=== PATIENT | female | born 1960 | race Caucasian/White ===

== ENCOUNTER 2017-03-24 16:21 | Emergency (ER) | payer BC, OTHER ==
[~2017-03-24] VITALS: Ht 167.6 cm; Wt 71.1 kg
[~2017-03-24 16:21] MED LIST: ALPR0.254; NITR-58 PO
[2017-03-24 16:23] VITALS: Ht 167.6 cm; Wt 71.1 kg
[2017-03-24] MEDS ORDERED: SOD CHLORIDE 0.9% 1,000 ML IV STA (16:43)
[2017-03-24] MEDS: KETOROLAC 30 MG INJ IV STA ×2 (17:03→17:04)
[2017-03-24 17:08] LABS: ADD UMIC YES; UR ASCORBIC ACID NEGATIVE (NEGATIVE); UR BILIRUBIN (Dip) NEGATIVE (NEGATIVE); UR BLOOD (Dip) 2+ mg/dL (NEGATIVE); UR CLARITY CLEAR (CLEAR); UR COLOR YELLOW (YELLOW); UR GLUCOSE (Dip) NEGATIVE (NEGATIVE); UR KETONES (Dip) NEGATIVE (NEGATIVE); UR LEUKOCYTE ESTERASE (Dip) TRACE Leu/ul (NEGATIVE); UR MUCUS FEW /HPF (NONE SEEN); UR NITRITE (Dip) NEGATIVE (NEGATIVE); UR RBC 2 /HPF (0-5); UR SQUAMOUS EPITHELIAL CELL FEW /HPF (FEW); UR TOTAL PROTEIN (Dip) NEGATIVE (NEGATIVE); UR UROBILINOGEN (Dip) NEGATIVE (NEGATIVE)
[2017-03-24 17:26] LABS: BASOPHIL # 0.1 10^3/ul (0.0-0.1); BASOPHILS % 0.7 % (0.0-2.0); EOSINOPHILS # 0.2 10^3/ul (0.0-0.5); EOSINOPHILS % 1.6 % (0.0-7.0); HEMATOCRIT 41.4 % (37.0-47.0); HEMOGLOBIN 13.7 g/dl (12.0-16.0); LYMPHOCYTES # 2.5 10^3/ul (0.8-2.9); LYMPHOCYTES % 25.8 % (15.0-51.0); MEAN CORPUSCULAR HEMOGLOBIN 30.9 pg (29.0-33.0); MEAN CORPUSCULAR HGB CONC 33.1 g/dl (32.0-37.0); MEAN CORPUSCULAR VOLUME 93.2 fl (82.0-101.0); MEAN PLATELET VOLUME 10.4 fl (7.4-10.4); MONOCYTE # 0.8 10^3/ul (0.3-0.9); MONOCYTES % 8.7 % (0.0-11.0); NEUTROPHILS % 62.9 % (39.0-77.0); PLATELET COUNT 279 10^3/UL (140-415); RED BLOOD COUNT 4.44 10^6/ul (4.20-5.40); RED CELL DISTRIBUTION WIDTH 12.1 % (11.5-14.5); WHITE BLOOD COUNT 9.5 10^3/ul (4.8-10.8)
[2017-03-24 17:48] LABS: POTASSIUM 3.8 mmol/L (3.5-5.1)
[2017-03-24 17:49] LABS: ALBUMIN 4.5 g/dl (3.3-4.9); ALBUMIN/GLOBULIN RATIO 1.28; BILIRUBIN,INDIRECT 0.2 mg/dl (0-1.1); BILIRUBIN,TOTAL 0.2 mg/dl (0.2-1.3); CALCIUM 10.3 mg/dl (8.4-10.2); CREATININE 0.76 mg/dl (0.44-1.00)
--- NOTE | 2017-03-24 18:17 | ERD ---
ER Documentation Chief Complaint Date/Time DATE: 03/24/17 TIME: 18:13 Chief Complaint LEFT SIDE ABD PAIN FOR THE PAST 3 DAYS. NO N/V. MILD CONSTIPTATION HPI This 56-year-old female came in for mid left abdominal pain going on for 3 days. She has also had the pain on and off for a month. She says she has had ultrasounds and x-rays before. Does not have any nausea vomiting fever chills but does report some constipation. ROS All systems reviewed and are negative except as per history of present illness. Medications Home Meds Active Scripts Hydrocodone/Acetaminophen ([place] 5-325 Tablet) 1 Each Tablet, 1 EACH PO Q6, #10 TAB Prov:MISTY JUARES DO 03/24/17 Polyethylene Glycol* (Miralax*) 17 Gm Powd.pack, 17 GM PO DAILY, #7 Prov:MISTY JUARES DO 03/24/17 Naproxen* (Naproxen*) 500 Mg Tablet, 500 MG PO BID Y for PAIN, #20 TAB Prov:MISTY JUARES DO 03/24/17 Nitrofurantoin Monohyd Macrocr* (Macrobid*) 100 Mg Capsr, 100 MG PO BID for 14 Days, CAP Prov:MARI MCKEON SHOE DYER 06/07/15 Reported Medications Alprazolam (Xanax) 0.25 Mg Tab 09/22/09 Allergies Allergies: Coded Allergies: Ciprofloxacin (Verified Allergy, Mild, 03/15/10) Sulfamethoxazole (Verified Allergy, Mild, 03/15/10) Trimethoprim (Verified Allergy, Mild, 03/15/10) Uncoded Allergies: [id number] (SULFA (SULFONAMIDE ANTIBIOTICS)) (Allergy, Mild, 09/22/09) PMhx/Soc History of Surgery: Yes (CS x1) Anesthesia Reaction: No Hx Neurological Disorder: No Hx Respiratory Disorders: No Hx Cardiac Disorders: No Hx Psychiatric Problems: No Hx Miscellaneous Medical Probl: No Hx Alcohol Use: No Hx Substance Use: No Hx Tobacco Use: No Smoking Status: Never smoker Physical Exam Vitals Vital Signs Date Time Temp Pulse Resp B/P Pulse Ox O2 Delivery O2 Flow Rate FiO2 03/24/17 16:23 98.8 99 20 184/83 98 Physical Exam Const: [] No distress Head: Atraumatic Eyes: Normal Conjunctiva ENT: Normal External Ears, Nose and Mouth. Neck: Full range of motion..~ No distress. Abd: Soft, very mild left-sided abdominal tenderness without guarding or rebound, non distended. Normal bowel sounds Skin: No petechiae or rashes Ext: No cyanosis, or edema Neur: Awake and alert and oriented 3, no focal deficits Psych: Normal Mood and Affect Result Diagram: 03/24/17 1650 03/24/17 1650 Results 24 hrs Laboratory Tests Test 03/24/17 16:00 03/24/17 16:50 Urine Color YELLOW Urine Clarity CLEAR Urine pH 5.0 Urine Specific [place] 1.020 Urine Ketones NEGATIVEmg/dL Urine Nitrite NEGATIVEmg/dL Urine Bilirubin NEGATIVEmg/dL Urine Urobilinogen NEGATIVEmg/dL Urine Leukocyte Esterase TRACELeu/ul Urine Microscopic RBC 2/HPF Urine Microscopic WBC 1/HPF Urine Squamous Epithelial Cells FEW/HPF Urine Mucus FEW/HPF Urine Hemoglobin 2+mg/dL Urine Glucose NEGATIVEmg/dL Urine Total Protein NEGATIVEmg/dl White Blood Count 9.510^3/ul Red Blood Count 4.4410^6/ul Hemoglobin 13.7g/dl Hematocrit 41.4% Mean Corpuscular Volume 93.2fl Mean Corpuscular Hemoglobin 30.9pg Mean Corpuscular Hemoglobin Concent 33.1g/dl Red Cell Distribution Width 12.1% Platelet Count 26495^3/UL Mean Platelet Volume 10.4fl Neutrophils % 62.9% Lymphocytes % 25.8% Monocytes % 8.7% Eosinophils % 1.6% Basophils % 0.7% Nucleated Red Blood Cells % 0.0/100WBC Neutrophils # 6.010^3/ul Lymphocytes # 2.510^3/ul Monocytes # 0.810^3/ul Eosinophils # 0.210^3/ul Basophils # 0.110^3/ul Nucleated Red Blood Cells # 0.010^3/ul Sodium Level 147mmol/L Potassium Level 3.8mmol/L Chloride Level 105mmol/L Carbon Dioxide Level 27mmol/L Anion Gap 19 Blood Urea Nitrogen 15mg/dl Creatinine 0.76mg/dl Glucose Level 125mg/dl Calcium Level 10.3mg/dl Total Bilirubin 0.2mg/dl Direct Bilirubin 0.00mg/dl Indirect Bilirubin 0.2mg/dl Aspartate Amino Transf (AST/SGOT) 20IU/L Alanine Aminotransferase (ALT/SGPT) 36IU/L Alkaline Phosphatase 51IU/L Total Protein 8.0g/dl Albumin 4.5g/dl Globulin 3.50g/dl Albumin/Globulin Ratio 1.28 Lipase 137U/L Current Medications Medications (Trade) Dose Ordered Sig/Jenifer Route PRN Reason Start Time Stop Time Status Last Admin Dose Admin Sodium Chloride (NS) 1,000 ml @ 1,000 mls/hr Q1H STAT IV 03/24/17 16:43 03/24/17 17:42 DC 03/24/17 17:03 Ketorolac Tromethamine (Toradol) 30 mg ONCE STAT IV 03/24/17 16:43 03/24/17 16:45 DC Procedures/MDM Patient with subacute abdominal pain. Benign abdominal exam. She is given IV fluids refused Toradol for pain medication and she said the pain was not that bad. She did want a CT scan performed she had x-rays and ultrasound testing. No acute laboratory abnormalities such as increased liver function or pancreatitis. Believe the patient is safe to be discharged. I am going to discharge with MiraLAX, naproxen and [place] for severe pain. Primary care follow -up in 2-[address] is pending will be followed by the oncoming physician I have read and I see no acute process except for moderate stool retention. CT abdomen pelvis interpretation by myself: I see no gross acute process. I see moderate stool retention in the ascending and transverse colon, no free air , no obstruction, no fractures per Departure Diagnosis: Primary Impression: Abdominal pain Condition: Stable MORMISTYKRISHNA ALLEN Mar 24, 2017 18:17
[2017-03-24] MEDS ORDERED: HYDR-906 PO (18:39)
[2017-03-24] MEDS ORDERED: POLY17PO6 PO (18:39)
[2017-03-24] MEDS ORDERED: NAPR-688 PO (18:39)
--- NOTE | 2017-03-24 18:54 | RADRPT ---
PROCEDURE: CT Abdomen and Pelvis without intravenous contrast. CLINICAL INDICATION: Left-sided abdominal pain . TECHNIQUE: CT scan of the abdomen and pelvis without intravenous contrast was performed on a multi -slice CT scanner. Coronal and sagittal reformatted images were obtained from the axial source image s. Images were reviewed on a high-resolution PACS workstation. Total DLP = 485.8 mGy-cm. CTDIvol = 9.2 mGy. One or more of the following dose reduction techniques were used: Automated exposure control. Adjustment of the mA and/or kV according to patient size. Use of iterative reconstruction technique. COMPARISON: None. FINDINGS: CT abdomen and pelvis: The lung bases clear of infiltrates or effusions. There is scarring in the lingula and right middle lobe.. The heart size is normal in size. The liver is normal in size and demonstrates a 3.1 cm lo w-density lobulated mass in the left lobe. There is another 2.1 cm low density lesion seen in the ri ght lobe of the liver. There is no intrahepatic biliary dilatation. The spleen is normal in size an d homogeneous in density. The pancreas as visualized is normal. The gallbladder shows no evidenc e of stones or distension . The adrenal glands are normal. The kidneys are symmetrically unremarka ble. No urolithiasis, obstructive uropathy, or solid mass lesion is seen. The stomach is partially collapsed, but is grossly unremarkable. The small bowels are unremarkable. The colon and rectum are normal. Mild retained feces is seen in the right colon. The appendix is no rmal. There is no evidence of appendicitis or diverticulitis. The pelvic organs are normal. The renan dder is decompressed. There is no abdominal or pelvic adenopathy, free fluid, free air, mass or mese nteric inflammation. The aorta is normal in caliber with calcific atherosclerosis . The osseous structures showing degen erative enthesopathy of the spine. No osteolytic or osteoblastic lesions are identified. The soft t issues are within normal limits. Lack of IV and oral contrast limits sensitivity of exam. IMPRESSION: 1. Multiple low-density lesions in the liver measuring up to 3.[address] of the abdomen with contrast - hepatic protocol is advised to further evaluate. 2. Mild retained feces in the right colon. 3. Otherwise unremarkable noncontrast CT abdomen and pelvis without acute pathology identified. RPTAT: QQ .Doug Carbajal MD, MD Date Time Electronically viewed and signed by .Doug Carbajal MD, MD on 03/24/2017 18:54 .L/
[2017-03-24 19:21] VITALS: BP 174/80; PULSE 60; RESP 15
== END 2017-03-24 19:22 | disposition home or self-care (01) ==
LOC: E/R 16:21
DX: R10.9 Unspecified abdominal pain (principal)
CPT/HCPCS: 36415; 74176; 80053; 81001; 83690; 85025; 99285; J1885; J7030